=== PATIENT | female | born 1980 | race Native Hawaiian/Other Pacific Islander ===

== ENCOUNTER 2017-05-19 12:24 | Emergency (ER) | payer OTHER ==
[2017-05-19 12:41] VITALS: BMI 32.0
--- NOTE | 2017-05-19 13:39 | RAD ---
PROCEDURE: Radiographs of the Left Shoulder HISTORY: pain x 1 month COMPARISON: No prior. FINDINGS: BONES: Normal. No fracture. JOINTS: Normal. Glenohumeral and acromioclavicular joints preserved. No osteoarthritis. SOFT TISSUES: Normal. OTHER FINDINGS: None. IMPRESSION: Normal radiographs of the left shoulder.
--- NOTE | 2017-05-19 13:49 | C.PDOC ---
History Of Present Illness 36 yr old female presents to the ER with complaints of left shoulder pain for the past 6 months, radiating from front to back. Patient states she thought it was normal, however last night she was unable to sleep. Also reports paresthesia and tingling sensation on the left hand. Patient denies any injuries , chest pain, neck pain, back pain, weakness or numbness. Patient is also reports 3 month history of painful lumps to the right buttock. States initially they were draining. Denies fever. Time Seen by Provider: 05/19/17 12:45 Chief Complaint (Nursing): Upper Extremity Problem/Injury History Per: Patient History/Exam Limitations: no limitations Onset/Duration Of Symptoms: Persistent (6 months of shoulder pain. 3 months of painful lumps ) Past Medical History Reviewed: Historical Data, Nursing Documentation, Vital Signs Vital Signs: Last Vital Signs Temp 98.7 F 05/19/17 14:22 Pulse 68 05/19/17 14:22 Resp 18 05/19/17 14:22 BP 118/82 05/19/17 14:22 Pulse Ox 99 05/19/17 14:22 Family History: States: No Known Family Hx - Social History Hx Alcohol Use: No Hx Substance Use: No - Immunization History Hx Tetanus Toxoid Vaccination: No Hx Influenza Vaccination: No Hx Pneumococcal Vaccination: No Review Of Systems Except As Marked, All Systems Reviewed And Found Negative. Constitutional: Negative for: Fever Cardiovascular: Negative for: Chest Pain Musculoskeletal: Positive for: Shoulder Pain (Left shoulder ), Other ((+) Left hand, paresthesia and tingling sensation ). Negative for: Neck Pain, Back Pain Neurological: Negative for: Weakness, Numbness Physical Exam - Physical Exam Appears: Non-toxic, No Acute Distress Skin: Warm, Dry, No Rash, Other ((+) Right Buttock - Scattered nodules, indurated and mild erythema. No vesicles. No fluctuance. ) Head: Atraumatic, Normacephalic Chest: Symmetrical, No Tenderness Cardiovascular: No Murmur Respiratory: Normal Breath Sounds, No Rales, No Rhonchi, No Stridor, No Wheezing Extremity: Normal ROM, No Tenderness, Capillary Refill (<2), No Swelling Neurological/Psych: Oriented x3, Normal Speech, Normal Motor ED Course And Treatment O2 Sat by Pulse Oximetry: 98 (RA ) Pulse Ox Interpretation: Normal - Other Rad X-Ray - Left Shoulder X-Ray: Viewed By Me, Read By Radiologist Interpretation: PROCEDURE: Radiographs of the Left Shoulder. HISTORY: pain x 1 month. COMPARISON: No prior. FINDINGS: BONES: Normal. No fracture. JOINTS: Normal. Glenohumeral and acromioclavicular joints preserved. No osteoarthritis. SOFT TISSUES: Normal. OTHER FINDINGS: None. IMPRESSION: Normal radiographs of the left shoulder. Medical Decision Making Medical Decision Making: PLAN: * X-Ray - Left Shoulder The physical exam is negative and xray are negative. No sling indicated at this time. Disposition - Disposition Referrals: Gretel Sanchez MD [Medical Doctor] - Disposition: HOME/ ROUTINE Disposition Time: 14:11 Condition: GOOD Additional Instructions: Followup with the medical doctor within 1-2 days. Return if worsened. 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 - Scribe Statement The provider has reviewed the documentation as recorded by the Scribe Hilda Martin All medical record entries made by the Scribe were at my direction and personally dictated by me. I have reviewed the chart and agree that the record accurately reflects my personal performance of the history, physical exam, medical decision making, and the department course for this patient. I have also personally directed, reviewed, and agree with the discharge instructions and disposition.
[2017-05-19 14:23] VITALS: BP 118/82; PULSE 68; RESP 18; TEMP 98.7
[2017-05-19 23:28] VITALS: O2SAT 98
== END 2017-05-19 14:35 | disposition home or self-care (01) ==
LOC: C.ER 12:24
DX: M75.92 Shoulder lesion, unspecified, left shoulder (principal); L08.89 Other specified local infections of the skin and subcutaneous tissue

== ENCOUNTER 2017-08-08 11:13 | Emergency (ER) | payer OTHER ==
[2017-08-08 11:13] VITALS: BMI 32.0
[2017-08-08 11:23] VITALS: TEMP 98.2
--- NOTE | 2017-08-08 12:45 | C.PDOC ---
History Of Present Illness 37 year old female presents to the ED with complaints of a rash to the back of her right leg with pain and discharge for approximately 7 months. She notes she has been applying unknown medication with no relief. Patient denies fever, recent travel, or change in lotions or body washes. Time Seen by Provider: 08/08/17 11:29 Chief Complaint (Nursing): Abnormal Skin Integrity History Per: Patient History/Exam Limitations: no limitations Onset/Duration Of Symptoms: Persistent (7-8 months ) Current Symptoms Are (Timing): Still Present Location Of Injury: Right: Leg, Left: Leg Quality Of Symptoms: Painful, Draining Recent travel outside of the [place]: No Past Medical History Reviewed: Historical Data, Nursing Documentation, Vital Signs Vital Signs: Last Vital Signs Temp 98.2 F 08/08/17 11:21 Pulse 71 08/08/17 12:46 Resp 17 08/08/17 12:46 BP 118/69 08/08/17 12:46 Pulse Ox 97 08/08/17 19:31 Family History: States: Unknown Family Hx - Social History Hx Alcohol Use: No Hx Substance Use: No - Immunization History Hx Tetanus Toxoid Vaccination: No Hx Influenza Vaccination: No Hx Pneumococcal Vaccination: No Review Of Systems Constitutional: Negative for: Fever Skin: Positive for: Rash Neurological: Negative for: Weakness, Numbness Physical Exam - Physical Exam Appears: Non-toxic, No Acute Distress Skin: Warm, Dry, Other (Large pustules to lower extremities and buttocks with surrounding erythema ) Head: Atraumatic, Normacephalic Extremity: Normal ROM, No Tenderness, No Pedal Edema, No Calf Tenderness, Capillary Refill (good capillary refill, less than two seconds ), No Deformity Neurological/Psych: Oriented x3 ED Course And Treatment O2 Sat by Pulse Oximetry: 97 (RA) Pulse Ox Interpretation: Normal Progress Note: Patient was given Doryx. Old records reviewed, the patient was seen in the ED several months ago for similar symptoms and was prescribed Doxycycline. So patient given Rx for Clindamycin. Disposition - Disposition Referrals: [facility] [Outside] Disposition: HOME/ ROUTINE Disposition Time: 12:41 Condition: GOOD Additional Instructions: Follow up with the medical doctor/clinic within 1-2 days. Return if worsened. 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 - Scribe Statement The provider has reviewed the documentation as recorded by the Scribe Faby Askew All medical record entries made by the Carlitos were at my direction and personally dictated by me. I have reviewed the chart and agree that the record accurately reflects my personal performance of the history, physical exam, medical decision making, and the department course for this patient. I have also personally directed, reviewed, and agree with the discharge instructions and disposition.
[2017-08-08 12:47] VITALS: BP 118/69; PULSE 71; RESP 17
[2017-08-08 12:48] VITALS: O2SAT 97
== END 2017-08-08 12:55 | disposition home or self-care (01) ==
LOC: C.ER 11:13
DX: L08.89 Other specified local infections of the skin and subcutaneous tissue (principal)

== ENCOUNTER 2017-11-02 13:20 | Emergency (ER) | payer OTHER ==
[2017-11-02 13:20] VITALS: BMI 32.0
[2017-11-02 13:54] VITALS: RESP 20
--- NOTE | 2017-11-02 14:04 | C.PDOC ---
History Of Present Illness Patient complains of nasal congestion and cough for 3 weeks. She also reports frontal headache and malaise for the past week. She tried OTC medications without relief. Denies fever, neck pain, chest pain, SOB. Time Seen by Provider: 11/02/17 13:33 Chief Complaint (Nursing): Flu-like Symptoms History Per: Patient History/Exam Limitations: no limitations Onset/Duration Of Symptoms: Other (3 weeks ) Current Symptoms Are (Timing): Still Present Location Of Pain: Headache (frontal ) Associated Symptoms: Cough, Nasal Congestion. denies: Fever, Chills Additional History Per: Patient Past Medical History Reviewed: Historical Data, Nursing Documentation, Vital Signs Vital Signs: Last Vital Signs Temp 98.9 F 11/02/17 15:00 Pulse 93 H 11/02/17 15:00 Resp 20 11/02/17 15:00 BP 109/71 11/02/17 15:00 Pulse Ox 100 11/02/17 15:00 - Medical History PMH: No Chronic Diseases Surgical History: No Surg Hx Family History: States: Unknown Family Hx - Social History Hx Alcohol Use: No Hx Substance Use: No - Immunization History Hx Tetanus Toxoid Vaccination: No Hx Influenza Vaccination: No Hx Pneumococcal Vaccination: No Review Of Systems Constitutional: Negative for: Fever, Chills ENT: Positive for: Nose Congestion Cardiovascular: Negative for: Chest Pain Respiratory: Positive for: Cough. Negative for: Shortness of Breath Musculoskeletal: Negative for: Neck Pain Neurological: Positive for: Headache (frontal ) Physical Exam - Physical Exam Appears: Non-toxic, No Acute Distress Skin: Normal Color, Warm, Dry Head: Atraumatic, Normacephalic Eye(s): bilateral: Normal Inspection Ear(s): Bilateral: Normal Nose: Normal, No Discharge Oral Mucosa: Moist Throat: Normal, No Erythema, No Exudate Neck: Supple Chest: Symmetrical, No Deformity, No Tenderness Cardiovascular: Rhythm Regular, No Murmur Respiratory: Normal Breath Sounds, No Rales, No Rhonchi, No Wheezing Neurological/Psych: Oriented x3, Normal Speech, Normal Cognition ED Course And Treatment O2 Sat by Pulse Oximetry: 97 (on RA) Pulse Ox Interpretation: Normal Medical Decision Making Medical Decision Making: Patient with URI symptoms for 3 weeks and no improvement with OTC meds. Will treat with antibiotics and recommend nasal spray, decongestant. Instruct patient to follow up in the clinic. Disposition Counseled Patient/Family Regarding: Need For Followup, Rx Given - Disposition Referrals: [facility] [Outside] [facility] [Outside] Disposition: HOME/ ROUTINE Disposition Time: 14:03 Condition: STABLE Additional Instructions: Please take antibiotic daily as prescribed Use nasal spray daily and decongestant as needed Follow up in the clinic for further evaluation Prescriptions: Amoxicillin [Amoxil 500 mg Cap] 500 mg PO BID #20 cap Fluticasone Propionate [Flonase] 1 spray NS DAILY #1 bottle Pseudoephedrine HCl [Sudafed 12-Hour] 120 mg PO Q12 #24 tablet.er Instructions: Sinusitis (ED), Upper Respiratory Infection (ED) Forms: [employer] (Yakut) - POA Present On Arrival: None - Clinical Impression Clinical Impression: Sinusitis, Upper respiratory infection - PA / SURG NURSE / Resident Statement MD/DO has reviewed & agrees with the documentation as recorded. - Scribe Statement The provider has reviewed the documentation as recorded by the Scribe (Dariela Hall) All medical record entries made by the Scribe were at my direction and personally dictated by me. I have reviewed the chart and agree that the record accurately reflects my personal performance of the history, physical exam, medical decision making, and the department course for this patient. I have also personally directed, reviewed, and agree with the discharge instructions and disposition.
[2017-11-02 15:17] VITALS: BP 109/71; PULSE 93; TEMP 98.9
[2017-11-02 15:33] VITALS: O2SAT 97
== END 2017-11-02 15:00 | disposition home or self-care (01) ==
LOC: C.ER 13:20
DX: J01.90 Acute sinusitis, unspecified (principal); F17.210 Nicotine dependence, cigarettes, uncomplicated

== ENCOUNTER 2017-11-18 20:23 | Emergency (ER) | payer OTHER ==
[2017-11-18 20:23] VITALS: BMI 32.0
[2017-11-18 20:33] VITALS: BP 128/74; PULSE 85; RESP 16; TEMP 99.9; O2SAT 98
--- NOTE | 2017-11-18 21:25 | C.PDOC ---
History Of Present Illness 37 year old female presents complaining of flu-like symptoms including fever, cough, generalized body aches, malaise, and headache, which started today. Took Advil at home with no relief. No vomiting or diarrhea. PMD: None Time Seen by Provider: 11/18/17 20:51 Chief Complaint (Nursing): Flu-like Symptoms History Per: Patient History/Exam Limitations: no limitations Onset/Duration Of Symptoms: Days (x1) Current Symptoms Are (Timing): Still Present Past Medical History Reviewed: Historical Data, Nursing Documentation, Vital Signs Vital Signs: Last Vital Signs Temp 99.9 F H 11/18/17 20:29 Pulse 85 11/18/17 20:29 Resp 16 11/18/17 20:29 BP 128/74 11/18/17 20:29 Pulse Ox 98 11/18/17 21:27 - Medical History PMH: No Chronic Diseases Surgical History: Family History: States: No Known Family Hx - Social History Hx Tobacco Use: Yes Hx Alcohol Use: No Hx Substance Use: No - Immunization History Hx Tetanus Toxoid Vaccination: No Hx Influenza Vaccination: No Hx Pneumococcal Vaccination: No Review Of Systems Constitutional: Positive for: Fever, Malaise, Other (Body aches) Eyes: Negative for: Redness ENT: Positive for: Nose Congestion. Negative for: Ear Pain, Throat Pain Cardiovascular: Negative for: Palpitations Respiratory: Positive for: Cough. Negative for: Sputum Gastrointestinal: Negative for: Vomiting, Abdominal Pain, Diarrhea Genitourinary: Negative for: Dysuria Skin: Negative for: Rash Neurological: Positive for: Headache Physical Exam - Physical Exam Appears: Non-toxic, No Acute Distress Skin: Normal Color, Warm, Dry Head: Atraumatic, Normacephalic Eye(s): bilateral: Normal Inspection, PERRL, EOMI Ear(s): Bilateral: Normal Nose: Normal Oral Mucosa: Moist Throat: Normal, No Erythema, No Exudate Neck: Normal ROM, Supple Chest: Symmetrical Cardiovascular: Rhythm Regular Respiratory: Normal Breath Sounds, No Accessory Muscle Use, No Wheezing Gastrointestinal/Abdominal: Soft, No Tenderness Extremity: Bilateral: Atraumatic, Normal Color And Temperature, Normal ROM Neurological/Psych: Oriented x3, Normal Speech ED Course And Treatment O2 Sat by Pulse Oximetry: 98 (RA) Pulse Ox Interpretation: Normal Medical Decision Making Medical Decision Making: Impression: Flu-like illness Plan: Tamiflu 75 mg PO Tylenol 975 mg PO Patient remained afebrile alert and oriented with stable vital signs during ER evaluation. Patient stable for discharge. Patient given follow up instructions. Instructed to return to ER if symptoms worsen or new symptoms arise. Disposition Counseled Patient/Family Regarding: Diagnosis, Need For Followup, Rx Given - Disposition Disposition: HOME/ ROUTINE Disposition Time: 21:40 Condition: GOOD Additional Instructions: You have Influenza Take Tamiflu twice daily for 5 days Your symptoms can last one week Take Tylenol or Motrin alternating every 4-6 hours for Fever 100.4F or higher. Take cough medicine as needed. Rest and drink plenty of fluids. May use cool mist humidifier or vaporizer in room. Follow up with your primary medical doctor or clinic in 2-5 days for further evaluation. Return to the emergency department at any time if symptoms persist or worsen. Prescriptions: Ibuprofen [Motrin] 600 mg PO Q8 #30 tab Oseltamivir [Tamiflu] 75 mg PO BID #10 cap Promethazine DM [Phenergan DM Syrup] 10 ml PO Q8 PRN #300 ml PRN Reason: Cough Instructions: Influenza (ED) Forms: 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 - Scribe Statement The provider has reviewed the documentation as recorded by the Scribe (Nelli Berrios) All medical record entries made by the Scribe were at my direction and personally dictated by me. I have reviewed the chart and agree that the record accurately reflects my personal performance of the history, physical exam, medical decision making, and the department course for this patient. I have also personally directed, reviewed, and agree with the discharge instructions and disposition.
== END 2017-11-18 21:55 | disposition home or self-care (01) ==
LOC: C.ER 20:23
DX: J11.1 Influenza due to unidentified influenza virus with other respiratory manifestations (principal); F17.210 Nicotine dependence, cigarettes, uncomplicated

== ENCOUNTER 2018-03-16 09:29 | Emergency (ER) | payer MEDICAID, OTHER ==
[2018-03-16 09:29] VITALS: BMI 32.0
[2018-03-16 09:44] VITALS: RESP 16
[2018-03-16] MEDS ORDERED: Sodium Chloride 0.9% 1,000 ML IV STA (10:13)
[2018-03-16] MEDS ORDERED: DiphenhydrAMINE 50 mg/ml Inj IVP STA (10:13)
[2018-03-16] MEDS ORDERED: Sodium Chloride 0.9% 1,000 ML ONE (10:23)
[2018-03-16] MEDS ORDERED: DiphenhydrAMINE 50 mg/ml Inj ONE (10:23)
[2018-03-16 11:48] VITALS: BP 101/69; PULSE 60; TEMP 98; O2SAT 97
--- NOTE | 2018-03-16 12:09 | C.PDOC ---
History Of Present Illness 37-year-old female, presents to the emergency department with complaints of generalized itchy rash she developed today. Patient reports she recently started using a new soap. Denies nausea/vomiting, fever or chills. No shortness of breath, throat swelling, or any other associated symptoms. No other complaints at this time. Chief Complaint (Nursing): Allergic Reaction History Per: Patient History/Exam Limitations: no limitations Current Symptoms Are (Timing): Still Present Past Medical History Reviewed: Historical Data, Nursing Documentation, Vital Signs Vital Signs: Last Vital Signs Temp 98.0 F 03/16/18 11:48 Pulse 60 03/16/18 11:48 Resp 16 03/16/18 11:48 BP 101/69 03/16/18 11:48 Pulse Ox 97 03/16/18 17:02 Surgical History: Family History: States: No Known Family Hx - Social History Hx Tobacco Use: Yes Hx Alcohol Use: No Hx Substance Use: No - Immunization History Hx Tetanus Toxoid Vaccination: No Hx Influenza Vaccination: No Hx Pneumococcal Vaccination: No Review Of Systems Constitutional: Negative for: Fever, Chills ENT: Negative for: Nose Discharge, Nose Congestion, Throat Pain, Throat Swelling Respiratory: Negative for: Shortness of Breath Gastrointestinal: Negative for: Vomiting Skin: Negative for: Rash Neurological: Negative for: Weakness, Numbness Physical Exam - Physical Exam Appears: Non-toxic, No Acute Distress Skin: Normal Color, Warm, Dry, Rash (diffuse urticaria,) Head: Atraumatic, Normacephalic Eye(s): bilateral: Normal Inspection, PERRL, EOMI Ear(s): Bilateral: Normal Nose: Normal Oral Mucosa: Moist Lips: Normal Appearing, No Swelling Throat: No Erythema, No Exudate, No Drooling, No Mass Neck: Normal ROM Chest: Symmetrical Cardiovascular: Rhythm Regular, No Murmur Respiratory: Normal Breath Sounds, No Accessory Muscle Use Gastrointestinal/Abdominal: Soft, No Tenderness Extremity: Normal ROM, No Deformity, No Swelling Neurological/Psych: Oriented x3, Normal Speech ED Course And Treatment O2 Sat by Pulse Oximetry: 97 (RA) Pulse Ox Interpretation: Normal Medical Decision Making Medical Decision Making: Impression: Rash Plan: * Benadryl, Pepcid, IVFs, Solumedrol * Reassess and Disposition Progress: On re-evaluation patient feels better. Patient is resting comfortable and in no acute distress. Will be discharged for outpatient f/u with PMD. Asked to return for any new or worsening symptoms. Disposition - Disposition Disposition: HOME/ ROUTINE Disposition Time: 12:04 Condition: STABLE Additional Instructions: ow up with PMD within 1-2 days.Return to ED if feel worse. Prescriptions: DiphenhydrAMINE [Benadryl] 25 mg PO .Q4-6 H #30 cap Famotidine [Pepcid] 20 mg PO BID #20 tab predniSONE [predniSONE Tab] 2 tab PO DAILY #8 tab Instructions: Hives (DC) Forms: [employer] (Costa Rican) - Clinical Impression Clinical Impression: Urticaria - Scribe Statement The provider has reviewed the documentation as recorded by the Scribe (Yan Ellison) All medical record entries made by the Scribe were at my direction and personally dictated by me. I have reviewed the chart and agree that the record accurately reflects my personal performance of the history, physical exam, medical decision making, and the department course for this patient. I have also personally directed, reviewed, and agree with the discharge instructions and disposition.
== END 2018-03-16 12:30 | disposition home or self-care (01) ==
LOC: C.ER 09:29
DX: L50.9 Urticaria, unspecified (principal)
CPT/HCPCS: 96361; 96374; 96375; 99284; J1200; J2930; J7030

== ENCOUNTER 2018-07-29 12:53 | Emergency (ER) | payer MEDICAID ==
[2018-07-29 12:53] VITALS: BMI 32.0
--- NOTE | 2018-07-29 15:04 | C.PDOC ---
History Of Present Illness 38 year old female presents to the emergency department with complaints of coughing for the past three weeks. Patient states that she occasionally experiences fever, vomiting, and sometimes notices blood in the cough. She also reports diarrhea. Patient states that she has been taking cough syrup with no relief of her symptoms. Time Seen by Provider: 07/29/18 14:18 Chief Complaint (Nursing): Cough, Cold, Congestion History Per: Patient History/Exam Limitations: no limitations Onset/Duration Of Symptoms: Other (three weeks) Associated Symptoms: Fever, Cough, Vomiting, Diarrhea Past Medical History Reviewed: Historical Data, Nursing Documentation, Vital Signs Vital Signs: Last Vital Signs Temp 98.1 F 07/29/18 13:05 Pulse 61 07/29/18 13:05 Resp 20 07/29/18 13:05 BP 102/70 07/29/18 13:05 Pulse Ox 98 07/29/18 13:05 - Medical History PMH: No Chronic Diseases Surgical History: Family History: States: No Known Family Hx - Social History Hx Tobacco Use: Yes Hx Alcohol Use: No Hx Substance Use: No - Immunization History Hx Tetanus Toxoid Vaccination: No Hx Influenza Vaccination: No Hx Pneumococcal Vaccination: No Review Of Systems Except As Marked, All Systems Reviewed And Found Negative. Constitutional: Positive for: Fever Respiratory: Positive for: Cough Gastrointestinal: Positive for: Vomiting, Diarrhea Physical Exam - Physical Exam Appears: Non-toxic, No Acute Distress Skin: Warm, Dry, No Rash Head: Atraumatic, Normacephalic Eye(s): bilateral: Normal Inspection, PERRL, EOMI Ear(s): Bilateral: Normal Nose: Normal Oral Mucosa: Moist Throat: Normal, No Erythema, No Exudate Neck: Normal, Supple Chest: Symmetrical, No Tenderness Cardiovascular: Rhythm Regular, No Murmur Respiratory: Normal Breath Sounds, No Rales, No Rhonchi, No Wheezing Gastrointestinal/Abdominal: Soft, No Tenderness Back: Normal Inspection, No CVA Tenderness Extremity: Normal ROM, No Swelling Neurological/Psych: Oriented x3, Normal Speech, Normal Cognition Gait: Steady ED Course And Treatment O2 Sat by Pulse Oximetry: 98 (RA) Pulse Ox Interpretation: Normal Progress Note: Plan: Zithromax 500mg PO. Prednisone 60mg PO Medical Decision Making Medical Decision Making: On re-exam, the patient reports improvement of symptoms. Lungs are CTA, heart is RRR, abdomen is soft, non-tender and tolerating PO well. Ambulatory in the ED with steady gait. Follow up with the medical doctor within 1-2 days. Return if worsened. Disposition - Disposition Referrals: [facility] [Outside] Disposition: HOME/ ROUTINE Disposition Time: 15:14 Condition: STABLE Additional Instructions: Follow up with the medical doctor within 1-2 days without fail. Return if worsened. 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 - Scribe Statement The provider has reviewed the documentation as recorded by the Scribe (Seun Ochoa) All medical record entries made by the Scribe were at my direction and personally dictated by me. I have reviewed the chart and agree that the record accurately reflects my personal performance of the history, physical exam, medical decision making, and the department course for this patient. I have also personally directed, reviewed, and agree with the discharge instructions and disposition.
[2018-07-29 15:30] VITALS: BP 110/63; PULSE 54; RESP 18; TEMP 98.2
[2018-07-29 22:39] VITALS: O2SAT 98
== END 2018-07-29 15:30 | disposition home or self-care (01) ==
LOC: C.ER 12:53
DX: J40 Bronchitis, not specified as acute or chronic (principal)

== ENCOUNTER 2018-10-15 02:44 | Emergency (ER) | payer MEDICAID ==
[2018-10-15 02:44] VITALS: BMI 32.0
[2018-10-15 03:02] VITALS: O2SAT 98
[2018-10-15 03:13] LABS: HCG,QUALITATIVE URINE NEGATIVE (NEGATIVE)
[2018-10-15] MEDS ORDERED: Naproxen 550 mg Tab PO STA (03:13)
--- NOTE | 2018-10-15 03:13 | C.PDOC ---
History Of Present Illness Patient is a 38 year old female who presents to the ED c/o body aches, fever/chills, headache and sore throat that have been present since the morning. Patient also states that she has had a productive cough for the past 4 months. She took Motrin at 6pm, but has had no relief. Patient denies vomiting, diarrhea, CP, SOB, rash, dysuria, or recent travels. Time Seen by Provider: 10/15/18 03:04 Chief Complaint (Nursing): Back Pain History Per: Patient History/Exam Limitations: no limitations Onset/Duration Of Symptoms: Hrs Current Symptoms Are (Timing): Still Present Recent travel outside of the [place]: No Additional History Per: Patient Past Medical History Reviewed: Historical Data, Nursing Documentation, Vital Signs Vital Signs: Last Vital Signs Temp 98.5 F 10/15/18 03:00 Pulse 110 H 10/15/18 03:00 Resp 20 10/15/18 03:00 BP 134/74 10/15/18 03:00 Pulse Ox 98 10/15/18 03:00 - Medical History PMH: No Chronic Diseases Surgical History: Family History: States: Unknown Family Hx - Social History Hx Tobacco Use: Yes Hx Alcohol Use: No Hx Substance Use: No - Immunization History Hx Tetanus Toxoid Vaccination: No Hx Influenza Vaccination: No Hx Pneumococcal Vaccination: No Review Of Systems Constitutional: Positive for: Fever, Chills, Other (body aches) Cardiovascular: Negative for: Chest Pain Respiratory: Positive for: Cough (productive). Negative for: Shortness of Breath Gastrointestinal: Negative for: Vomiting, Diarrhea Genitourinary: Negative for: Dysuria Skin: Negative for: Rash Physical Exam - Physical Exam Appears: Non-toxic, Other (tearful) Skin: Normal Color, Warm, Dry Head: Atraumatic, Normacephalic Eye(s): bilateral: Normal Inspection Oral Mucosa: Moist Throat: Erythema, Exudate, Other (swollen tonsils) Chest: Symmetrical, No Deformity Cardiovascular: Rhythm Regular, Other (mild tachycardia) Respiratory: Normal Breath Sounds, No Rales, No Rhonchi, No Wheezing Gastrointestinal/Abdominal: Soft, No Tenderness, No Guarding, No Rebound Extremity: Normal ROM Neurological/Psych: Oriented x3, Normal Speech, Normal Cognition Gait: Steady ED Course And Treatment - Laboratory Results Result Diagrams: 10/15/18 04:00 10/15/18 04:00 O2 Sat by Pulse Oximetry: 98 (ON RA) Pulse Ox Interpretation: Normal - Radiology CXR: Interpreted by Me, Viewed By Me Progress Note: Plan: -Bloodwork. -CXR. -Tessalon Perles 100mg PO. -Toradol 30mg IVP. -Anaprox 550mg PO. -IV fluids Disposition Counseled Patient/Family Regarding: Studies Performed, Diagnosis, Need For Followup, Rx Given - Disposition Referrals: [facility] [Outside] Disposition: HOME/ ROUTINE Disposition Time: 06:00 Condition: STABLE Additional Instructions: FOLLOW UP WITH YOUR DOCTOR/CLINIC IN 1-2 DAYS USE MEDICATIONS DIRECTED DRINK PLENTY OF FLUIDS RETURN TO ER IF YOU HAVE ANY CONCERNING SYMPTOMS Prescriptions: Amoxicillin/Clavulanate [Augmentin 875 MG-125 MG] 1 tab PO BID #14 tab Naproxen 375 mg PO BID PRN #20 tablet PRN Reason: pain Phenol/Glycerin [Chloraseptic Max [place]] 1 spray MM Q6 PRN #1 spray PRN Reason: THROAT PAIN Instructions: Strep Throat (DC) Forms: [employer] (Ukrainian) Print Language: AMERICAN - Clinical Impression Clinical Impression: Strep pharyngitis - Scribe Statement The provider has reviewed the documentation as recorded by the Scribe Provider Attestation: Georgiana Colbert All medical record entries made by the Scribe were at my direction and personally dictated by me. I have reviewed the chart and agree that the record accurately reflects my personal performance of the history, physical exam, medical decision making, and the department course for this patient. I have also personally directed, reviewed, and agree with the discharge instructions and disposition.
[2018-10-15 03:16] LABS: SQUAMOUS EPITHIAL 7 /hpf (0-5); URINE BACTERIA MANY (<OCC); URINE BILIRUBIN NEGATIVE (NEGATIVE); URINE BLOOD 1+ (NEGATIVE); URINE CLARITY Hazy (Clear); URINE COLOR Yellow (YELLOW); URINE GLUCOSE (UA) NORMAL (Normal); URINE LEUKOCYTE ESTERASE NEG Leu/uL (Negative); URINE PROTEIN NEGATIVE (NEGATIVE)
[2018-10-15] MEDS ORDERED: Naproxen 550 mg Tab PO ONE (03:19)
[2018-10-15] MEDS ORDERED: Sodium Chloride 0.9% 1,000 ML IV ONE ×2 (03:46→04:36)
[2018-10-15 04:05] LABS: BASO # 0.1 K/uL (0.0-0.2); BASO % 0.6 % (0.0-2.0); EOS # 0.1 K/uL (0.0-0.7); EOS % 0.4 % (0.0-4.0); HEMOGLOBIN 13.4 g/dL (11.0-16.0); LYMPH # 1.3 K/uL (1.0-4.3); LYMPH % 7.6 % (20.0-40.0); MEAN CELL VOLUME 86.3 fL (81.0-99.0); MEAN CORPUSCULAR HEMOGLOBIN 29.7 pg (27.0-31.0); MEAN CORPUSCULAR HGB CONC 34.4 g/dL (33.0-37.0); MEAN PLATELET VOLUME 8.9 fL (7.2-11.7); MONO # 1.2 K/uL (0.0-0.8); MONO % 6.5 % (0.0-10.0); NEUT % 84.9 % (50.0-75.0); PLATELET COUNT 267 K/uL (130-400); RBC 4.52 Mil/uL (3.80-5.20); RED CELL DISTRIBUTION WIDTH 13.1 % (11.5-14.5); WHITE BLOOD COUNT 17.7 K/uL (4.8-10.8)
[2018-10-15 04:15] LABS: ALB/GLOB RATIO 1.4 (1.0-2.1); ALBUMIN 4.5 g/dL (3.5-5.0); BLOOD UREA NITROGEN 11 mg/dL (7-17); CALCIUM 8.6 mg/dl (8.6-10.4); GFR NON-AFRICAN AMERICAN > 60
[2018-10-15 04:17] LABS: ALT/SGPT 36 U/L (9-52); AST/SGOT 44 U/L (14-36)
[2018-10-15] MEDS ORDERED: cefTRIAXone IV 1 gm in Dextros 50 ML IV ONE (04:35)
[2018-10-15] MEDS ORDERED: Sodium Chloride 0.9% 1,000 ML ONE (04:48)
[2018-10-15] MEDS ORDERED: cefTRIAXone 1 gm 1 GM/100 ML BAG IVPB ONE (04:48)
[2018-10-15 05:11] LABS: LYMPHOCYTE 7 % (20-40); MONOCYTE 7 % (0-10); NEUTROPHIL 86 % (50-75); PLATELET ESTIMATE NORMAL (NORMAL); TOTAL CELLS COUNTED 100
[2018-10-15 05:52] VITALS: BP 119/74; PULSE 90; RESP 18; TEMP 98.8
--- NOTE | 2018-10-15 10:31 | RAD ---
HISTORY: PRODUCTIVE COUGH, FEVER COMPARISON: None available. TECHNIQUE: Chest PA and lateral FINDINGS: Examination limited by habitus and hypoinflation. LUNGS: Bibasilar atelectasis. Please note that chest x-ray has limited sensitivity for the detection of pulmonary masses. PLEURA: No significant pleural effusion identified. No definite pneumothorax . CARDIOVASCULAR: Heart size appears top normal, likely exaggerated by technique. No atherosclerotic calcification present. OSSEOUS STRUCTURES: No acute osseous abnormality identified. VISUALIZED UPPER ABDOMEN: Unremarkable. OTHER FINDINGS: None. IMPRESSION: Bibasilar atelectasis.
== END 2018-10-15 05:53 | disposition home or self-care (01) ==
LOC: C.ER 02:44
DX: J02.0 Streptococcal pharyngitis (principal); Z72.0 Tobacco use
CPT/HCPCS: 71046; 80053; 81001; 84703; 85025; 87430; 87804; 96361; 96374; 96375; 99285; J0696; J1885; J7030